=== PATIENT | female | born 1985 | race Caucasian/White ===

== ENCOUNTER 2022-04-17 18:27 | Emergency (ER) | payer BC, SELFPAY ==
[2022-04-17 18:55] VITALS: BP 142/87; PULSE 82; RESP 18; TEMP 37.1; O2SAT 100
--- NOTE | 2022-04-17 20:10 | ED.SKABFB ---
HPI - Skin/Abscess/Foreign Bdy General Chief complaint: Skin/Abscess/Foreign Body Stated complaint: Wasp sting Time Seen by Provider: 04/17/22 20:11 Source: patient, RN notes reviewed and old records reviewed Mode of arrival: ambulatory History of Present Illness HPI narrative: 36-year-old female who presents to [facility] care with complaints of wasp sting to left lower forearm which occurred on Sunday evening. Patient has progressively had increased redness warmth and tenderness to tissue surrounding the sting. Patient has 10cm X 4 cm area of redness warmth and tenderness of left forearm, no induration of tissue or any drainage noted. Patient has used hydrocortisone ointment, Benadryl gel, ice, Siobhan and Zyrtec with no improvement. Patient denies any difficulty swallowing or any difficulty with her breathing. MD complaint: insect bite/sting Onset (ago): day(s) (2) Treatments prior to arrival: other (Benadryl gel) Related Data Home Medications Medication Instructions Recorded Confirmed cetirizine 10 mg tablet (Zyrtec) 10 mg PO HS 04/17/22 04/17/22 fexofenadine 180 mg tablet 180 mg PO DAILY 04/17/22 04/17/22 fluticasone furoate 100 100 inh inhalation BID 04/17/22 04/17/22 mcg-vilanterol 25 mcg/dose inhalation powder (Breo Ellipta) Allergies Allergy/AdvReac Type Severity Reaction Status Date / Time amoxicillin Allergy Rash Verified 04/17/22 19:00 clavulanic acid Allergy Rash Verified 04/17/22 19:00 [From Augmentin] doxycycline Allergy Swelling Verified 04/17/22 19:00 of Lip/Tongue/Throat erythromycin base Allergy Nausea and Verified 04/17/22 19:00 Vomiting Penicillins Allergy Rash Verified 04/17/22 19:00 TUBERCULIN SKIN TEST Allergy Hives Uncoded 04/17/22 19:00 Review of Systems Review of Systems: CONSTITUTIONAL: Denies fever, chills, or sweats. EYES: Denies visual changes, redness, or discharge. ENT: Denies rhinorrhea, congestion, sore throat, or otalgia. CARDIOVASCULAR: Denies chest pain, palpitations, or edema. RESPIRATORY: Denies cough or dyspnea. GASTROINTESTINAL: Denies abdominal pain, nausea, vomiting, or diarrhea. GENITOURINARY: Denies dysuria or hematuria. SKIN: Denies rash or itching.Positive for wasp sting to left forearm with redness warmth and tenderness MUSCULOSKELETAL: Denies back pain, joint pain, or myalgia. NEUROLOGIC: Denies headache, numbness, or weakness. PSYCHIATRIC: Denies anxiety or depression. All systems reviewed & are unremarkable except as noted in HPI and below PMFSH Past Medical History Medical History (Updated 04/19/22 @ 09:09 by Lisa Ngo NP) Asthma Social History Social History (Updated 04/19/22 @ 09:10 by Lisa Ngo NP) Smoking status: Never smoker Alcohol intake: current Alcohol use details: social Substance use type: does not use Living arrangements: with family Gender identity (if verbalized by the patient): Female Comments At time of signature agree with nursing documentation of past social, medical, surgical and family history. There is no pertinent family history relevant to presenting complaint. Exam Narrative: GENERAL: Well-appearing, well-nourished, and in no acute distress. HEAD: Normocephalic, atraumatic. EYES: PERRLA and EOMI. ENT: Nares clear, no rhinorrhea or epistaxis. Mucous membranes moist.TM's normal with good light reflex, throat pink with no lesions exudates or tonsil swelling NECK: Supple.no lymphadenopathy CHEST: Clear to auscultation. No respiratory distress.SAO2 100% on room air HEART: Regular rate and rhythm. No murmur heard. Normal peripheral pulses. ABDOMEN: Soft, nontender, nondistended, normal active bowel sounds. EXTREMITIES: Normal range of motion. No edema. SKIN: Warm, dry, red tender skin to left lower forearm after being stung by wasp area is 10cm X 4cm with no induration of tissue or drainage is warm and tender to palpation NEURO: No focal deficits. Alert and oriented x3. Course C
== END 2022-04-17 20:31 | disposition home or self-care (01) ==
PROVIDERS: Emergency Provider Registered Nurse
DX: L03.114 Cellulitis of left upper limb (principal); T63.461A Toxic effect of venom of wasps, accidental (unintentional), initial encounter; J45.909 Unspecified asthma, uncomplicated
CPT/HCPCS: 99213; G0463